=== PATIENT | female | born 1950 | race Caucasian/White ===

== ENCOUNTER → 2023-08-24 09:22 | Outpatient (BNVA) | payer MEDICARE, BC, SELFPAY | PROVIDERS: PCP Family Medicine; Referring Provider Family Medicine; Visit Provider Psychiatry & Neurology Neurology | DX: I65.29 Occlusion and stenosis of unspecified carotid artery (principal); I66.09 Occlusion and stenosis of unspecified middle cerebral artery; R29.818 Other symptoms and signs involving the nervous system; R25.2 Cramp and spasm; R20.2 Paresthesia of skin | CPT/HCPCS: 99205 ==